=== PATIENT | female | born 1970 | race Caucasian/White ===

== ENCOUNTER 2023-12-16 15:01 | Emergency (ER) | payer OTHER ==
[~2023-12-16] VITALS: Ht 170.2 cm; Wt 145.1 kg
[~2023-12-16 15:01] MED LIST: HYDR-4280 PO; PHEN30CA PO
[2023-12-16 15:10] VITALS: BP_SYST 158; PULSE 101; RESP 18; TEMP 98.3; O2SAT 98
[2023-12-16] MEDS ORDERED: iohexoL 350 mgI/mL, 100 ML INFUS..BTL IV ONE (15:35)
[2023-12-16 15:55] LABS: ANION GAP 5 (5-15); CARBON DIOXIDE 29 mmol/L (23-29); CHLORIDE 100 mmol/L (98-107); CREATININE 0.93 mg/dL (0.55-1.30); GFR AFRICAN AMERICAN 81 mL/min (>90); GFR NON AFRICAN-AMERICAN 67 mL/min (>90); GLUCOSE 103 mg/dL (74-106); POTASSIUM 4.2 mmol/L (3.5-5.1); SODIUM SERUM 134 mmol/L (136-145); UREA NITROGEN, BLOOD 15 mg/dL (8-21)
[2023-12-16 16:03] LABS: CREATINE KINASE, TOTAL 186 U/L (26-192)
[2023-12-16 16:08] LABS: BASOPHILS # (AUTO) 0.1 K/uL (0.0-0.2); BASOPHILS % (AUTO) 1.3 % (0.0-2.0); EOSINOPHILS # (AUTO) 0.2 K/uL (0.0-0.4); EOSINOPHILS % (AUTO) 2.8 % (0.0-4.0); HEMATOCRIT 44.4 % (36-48); HEMOGLOBIN 15.4 g/dL (12.0-16.0); LYMPHOCYTES # (AUTO) 1.7 K/uL (1.0-5.5); LYMPHOCYTES % (AUTO) 21.3 % (20.5-51.5); MEAN CORPUSCULAR HEMOGLOBIN 32 pg (27-31); MEAN CORPUSCULAR HGB CONC 35 % (32-36); MEAN CORPUSCULAR VOLUME 94 fL (79.0-98.0); MONOCYTES # (AUTO) 0.5 K/uL (0.0-1.0); MONOCYTES % (AUTO) 5.8 % (1.7-9.3); NEUTROPHILS # (AUTO) 5.4 K/uL (1.8-7.7); NEUTROPHILS % (AUTO) 68.8 % (40.0-70.0); PLATELET COUNT (AUTO) 374 K/uL (130-430); RED BLOOD CELL COUNT(AUTO) 4.74 MIL/uL (4.2-6.2); RED CELL DISTRIBUTION WIDTH 13.6 % (9.0-15.0); WHITE BLOOD COUNT (AUTO) 7.8 K/uL (4.8-10.8)
[2023-12-16 16:10] LABS: PROTHROMBIN TIME 10.2 SECS (9.5-12.5)
== END 2023-12-16 16:14 | disposition left against medical advice (07) ==
LOC: SED 15:01
DX: R20.2 Paresthesia of skin (principal); K21.9 Gastro-esophageal reflux disease without esophagitis; Z79.899 Other long term (current) drug therapy
CPT/HCPCS: 99283; 80048; 82550; 85025; 85610; 85730; 84484; 36415; Q9967

== ENCOUNTER 2023-12-30 13:32 | Emergency (ER) | payer OTHER ==
[~2023-12-30] VITALS: Ht 157.5 cm; Wt 72.6 kg
[2023-12-30 13:40] VITALS: BP_SYST 166; PULSE 82; RESP 18; TEMP 98.3; O2SAT 98
[2023-12-30 14:33] LABS: BASOPHILS % (AUTO) 0.6 % (0.0-2.0); EOSINOPHILS # (AUTO) 0.2 K/uL (0.0-0.4); EOSINOPHILS % (AUTO) 3.2 % (0.0-4.0); HEMATOCRIT 41.9 % (36-48); HEMOGLOBIN 14.7 g/dL (12.0-16.0); LYMPHOCYTES # (AUTO) 1.4 K/uL (1.0-5.5); LYMPHOCYTES % (AUTO) 20.7 % (20.5-51.5); MEAN CORPUSCULAR HEMOGLOBIN 33 pg (27-31); MEAN CORPUSCULAR HGB CONC 35 % (32-36); MEAN CORPUSCULAR VOLUME 94 fL (79.0-98.0); MONOCYTES # (AUTO) 0.4 K/uL (0.0-1.0); MONOCYTES % (AUTO) 5.7 % (1.7-9.3); NEUTROPHILS # (AUTO) 4.7 K/uL (1.8-7.7); NEUTROPHILS % (AUTO) 69.8 % (40.0-70.0); PLATELET COUNT (AUTO) 334 K/uL (130-430); RED BLOOD CELL COUNT(AUTO) 4.47 MIL/uL (4.2-6.2); RED CELL DISTRIBUTION WIDTH 13.5 % (9.0-15.0); WHITE BLOOD COUNT (AUTO) 6.7 K/uL (4.8-10.8)
[2023-12-30] MEDS: MECLIZINE HCL 25 MG TABLET (ANITVERT) PO ONE (14:36)
[2023-12-30] MEDS: ONDANSETRON HCL 4 MG/2 ML VIAL IVP ONE (14:47)
[2023-12-30] MEDS: NACL 0.9% 1,000 ML IV ONE (14:57)
[2023-12-30 15:28] LABS: ALBUMIN 3.2 g/dL (3.4-4.8); BILIRUBIN,DIRECT 0.1 mg/dL (0.0-0.3); CALCIUM 8.3 mg/dL (8.4-11.0); CREATININE 0.88 mg/dL (0.55-1.30); POTASSIUM 3.8 mmol/L (3.5-5.1); TOTAL BILIRUBIN 0.3 mg/dL (0.0-1.0)
[2023-12-30 16:08] LABS: BILIRUBIN,URINE NEGATIVE (NEGATIVE); BLOOD, URINE NEGATIVE (NEGATIVE); COLOR,URINE YELLOW (YELLOW); GLUCOSE,URINE NEGATIVE (NEGATIVE); KETONES,URINE NEGATIVE (NEGATIVE); LEUKOCYTE ESTERASE ,URINE TRACE (NEGATIVE); NITRITE, URINE NEGATIVE (NEGATIVE); PROTEIN URINE NEGATIVE (NEGATIVE); UROBILINOGEN,URINE 0.2 (0.2-1.0)
[2023-12-30 17:03] LABS: CLARITY/URINE SLIGHTLY HAZY (CLEAR)
[2023-12-30 17:05] LABS: BACTERIA,URINE MODERATE /HPF (None Seen); RBC,URINE NONE SEEN /HPF (0-3)
[2023-12-30 17:07] LABS: MUCUS,URINE None Seen /LPF (None Seen)
[2023-12-30 17:12] VITALS: BP_SYST 140; PULSE 83; RESP 20; TEMP 98.3; O2SAT 99
== END 2023-12-30 17:11 | disposition left against medical advice (07) ==
LOC: SED 13:32
DX: R42 Dizziness and giddiness (principal); R51.9 Headache, unspecified; K21.9 Gastro-esophageal reflux disease without esophagitis
CPT/HCPCS: 99285; 96374; 70450; 96361; 80076; 80048; 81000; 81001; 85025; 87086; 36415; 93005; 81015; J2405; J7030; J8597